=== PATIENT | male | born 1950 | race Caucasian/White ===

== ENCOUNTER 2017-07-25 09:55 | Inpatient (IN) | payer MEDICAID, MEDICARE, SELFPAY | END 2017-07-25 19:28 | disposition E | DRG 291 | PROVIDERS: Admitting Provider Emergency Medicine; Emergency Provider Emergency Medicine; Family Provider Emergency Medicine; Visit Provider Emergency Medicine | DX: I50.43 Acute on chronic combined systolic (congestive) and diastolic (congestive) heart failure (principal); J96.02 Acute respiratory failure with hypercapnia; J96.01 Acute respiratory failure with hypoxia; J44.9 Chronic obstructive pulmonary disease, unspecified; E11.9 Type 2 diabetes mellitus without complications; I10 Essential (primary) hypertension; Z95.5 Presence of coronary angioplasty implant and graft; Z95.810 Presence of automatic (implantable) cardiac defibrillator; I25.5 Ischemic cardiomyopathy | CPT/HCPCS: 71010; 80053; 81001; 82550; 82553; 82803; 82962; 83605; 83880; 84484; 85025; 87040; 87086; 93005; 93041; 94660; 94760; 96365; 96375; 99285; J1956 ==